=== PATIENT | male | born 1935 | race Caucasian/White ===

== ENCOUNTER → 2021-11-09 | Outpatient (CLI) | payer OTHER, BC ==
[~2021-11-09] MED LIST: AMLODIPINE PO; CLOPIDOGREL75 MG PO; HYDROCHLOTHIAZIDE PO; IOPAMIDOL 370 MG/ML 200 ML INFUS..BTL INJ ONE; LEVOTHYROXINE75 MCG PO; SODIUM CHLORIDE 0.9% 0 ML ONE
[2021-11-09 09:57] LABS: CREATININE, SERUM 2.27 mg/dL (0.72-1.25)
== END ==
LOC: CT 08:40
PROVIDERS: ATTEND Internal Medicine Interventional Cardiology
DX: R07.9 Chest pain, unspecified (principal); I48.91 Unspecified atrial fibrillation; I28.8 Other diseases of pulmonary vessels; I25.10 Atherosclerotic heart disease of native coronary artery without angina pectoris
CPT/HCPCS: 36415; 71250; 82565; 84520; J7050; Q9967

== ENCOUNTER 2022-02-20 10:08 | Inpatient (IN) | payer OTHER, BC ==
[~2022-02-20] VITALS: Ht 175.3 cm; Wt 48.1 kg
[2022-02-20] VITALS (8 sets, daily range): BP systolic 95–131; BP diastolic 42–108
[2022-02-20] MEDS: SODIUM CHLORIDE 0.9% 1000ML 1,000 ML IV SCH ×2 (01:30→14:12)
[~2022-02-20 10:08] MED LIST changes: -IOPAMIDOL 370 MG/ML 200 ML INFUS..BTL INJ ONE; -SODIUM CHLORIDE 0.9% 0 ML ONE
[2022-02-20] MEDS ORDERED: SODIUM CHLORIDE FLUSH 10 ML SYR IV PRN (10:15)
[2022-02-20] MEDS ORDERED: ACETAMINOPHEN 325 MG TAB PO ONE (10:30)
[2022-02-20 10:42] LABS: BASOPHILS # (AUTO) 0.1 (0.0-0.1); BASOPHILS % 0.8 % (0.0-1.0); EOSINOPHILS # (AUTO) 0.4 (0.0-0.4); EOSINOPHILS % 2.4 % (0.0-6.0); HEMATOCRIT 40.8 % (38.2-49.6); HEMOGLOBIN 12.3 g/dL (14.0-18.0); LYMPHOCYTES # (AUTO) 0.9 (1.0-3.2); LYMPHOCYTES % 6.1 % (18.0-39.1); MEAN CORPUSCULAR HGB CONC 30.1 g/dL (31-35); MEAN CORPUSCULAR VOLUME 89.5 fL (81-99); MONOCYTES # (AUTO) 0.7 (0.2-0.8); MONOCYTES % 4.6 % (4.4-11.3); NEUTROPHILS # (AUTO) 12.4 (2.1-6.9); NEUTROPHILS % 85.7 % (38.7-80.0); PLATELET COUNT 457 x10e3/uL (140-360); RED BLOOD COUNT 4.56 x10e6/uL (4.3-5.7); RED CELL DISTRIBUTION WIDTH 15.2 % (11.7-14.4)
[2022-02-20 11:24] LABS: ALBUMIN 3.4 g/dL (3.5-5.0); ALBUMIN/GLOBULIN RATIO 0.8 (0.8-2.0); ANION GAP 17.3 mmol/L (8-16); CALCIUM 8.7 mg/dL (8.4-10.2); CREATININE, SERUM 4.35 mg/dL (0.72-1.25)
[2022-02-20 11:29] LABS: POTASSIUM 6.3 mmol/L (3.5-5.1)
[2022-02-20] MEDS ORDERED: ALBUTEROL SULF 0.083% NEB SOLN 3 ML NEB NEB STA (11:37)
[2022-02-20] MEDS ORDERED: SODIUM BICARBONATE 8.4% INJ 50 ML SYR IV STA ×2 (11:43→11:57)
[2022-02-20] MEDS ORDERED: LACTATED RINGER'S 1,000 ML INJ ONE ×2 (11:45→12:30)
[2022-02-20] MEDS ORDERED: DEXTROSE 50% SYRINGE 50 ML IV ONE (11:45)
[2022-02-20] MEDS ORDERED: INSULIN REGULAR, HUMAN 100 UNIT/1 ML IV ONE (11:45)
[2022-02-20] MEDS ORDERED: ONDANSETRON HCL INJ 2MG/ML 2ML 2 MG/ML VIAL IV PRN (12:30)
[2022-02-20] MEDS ORDERED: CALCIUM GLUC 1 G/50 ML NACL 50 ML IV ONE (12:45)
[2022-02-20] MEDS ORDERED: SOD POLYSTYRENE SULFONATE SUSP 15 GM/60 ML BTL PO ONE (15:00)
[2022-02-20 15:53] LABS: CALCIUM 8.7 mg/dL (8.4-10.2); CREATININE, SERUM 3.79 mg/dL (0.72-1.25)
[2022-02-20] MEDS: LEVOFLOXACIN 250MG/D5W 50ML 50 ML IV SCH (16:09)
[2022-02-20 16:41] LABS: CLARITY,URINE CLOUDY (CLEAR); COLOR,URINE YELLOW (YELLOW); KETONES,URINE NEGATIVE (NEGATIVE); LEUKOCYTE ESTERASE ,URINE 2+ (NEGATIVE); NITRITE,URINE NEGATIVE (NEGATIVE); PROTEIN,URINE DIPSTICK 1+ (NEGATIVE); URINE UROBILINOGEN 0.2 mg/dL (0.2 - 1)
[2022-02-20 16:47] LABS: BACTERIA,URINE FEW /HPF; EPITHELIAL CELLS,URINE FEW /LPF; RBC,URINE 0-5 /HPF (0-5)
[2022-02-20 17:20] LABS: TOTAL PROTEIN, URINE 18.5 mg/dL (1-14)
[2022-02-20 17:37] LABS: CREATININE,URINE RANDOM 77.44 mg/dL (63-166); SODIUM,URINE 66 mmol/L
[2022-02-20 19:53] LABS: EOSINOPHIL SMEAR,URINE NONE SEEN (NONE SEEN)
[2022-02-21] VITALS (16 sets, daily range): BP systolic 113–151; BP diastolic 47–78
[2022-02-21 05:01] LABS: BASOPHILS # (AUTO) 0.1 (0.0-0.1); BASOPHILS % 0.7 % (0.0-1.0); EOSINOPHILS # (AUTO) 0.3 (0.0-0.4); EOSINOPHILS % 3.3 % (0.0-6.0); HEMATOCRIT 34.3 % (38.2-49.6); LYMPHOCYTES # (AUTO) 0.5 (1.0-3.2); LYMPHOCYTES % 5.2 % (18.0-39.1); MEAN CORPUSCULAR HEMOGLOBIN 27.2 pg (28-32); MEAN CORPUSCULAR HGB CONC 29.2 g/dL (31-35); MEAN CORPUSCULAR VOLUME 93.2 fL (81-99); MONOCYTES # (AUTO) 0.7 (0.2-0.8); MONOCYTES % 6.5 % (4.4-11.3); NEUTROPHILS # (AUTO) 8.7 (2.1-6.9); NEUTROPHILS % 83.9 % (38.7-80.0); PLATELET COUNT 284 x10e3/uL (140-360); RED BLOOD COUNT 3.68 x10e6/uL (4.3-5.7); RED CELL DISTRIBUTION WIDTH 15.4 % (11.7-14.4)
[2022-02-21 05:17] LABS: ANION GAP 14.1 mmol/L (8-16); CALCIUM 7.7 mg/dL (8.4-10.2); CREATININE, SERUM 3.18 mg/dL (0.72-1.25); POTASSIUM 4.1 mmol/L (3.5-5.1)
[2022-02-21] MEDS: METOPROLOL TARTRATE INJ 1 MG/ML VIAL IV PRN ×2 (05:54→12:51)
[2022-02-21] MEDS: SODIUM CHLORIDE 0.9% 1000ML 1,000 ML IV SCH ×3 (09:17→17:23)
[2022-02-21] MEDS ORDERED: VERAPAMIL ER120 MG PO (09:39)
[2022-02-21] MEDS ORDERED: ELIQUIS2.5 MG PO (09:40)
[2022-02-21] MEDS ORDERED: BENAZEPRIL HCL10 MG PO (09:41)
[2022-02-21] MEDS ORDERED: ASPIRIN EC81 MG PO (09:42)
[2022-02-21] MEDS: LEVOFLOXACIN 250MG/D5W 50ML 50 ML IV SCH (14:42)
[2022-02-21 15:55] LABS: ABG HCO3 13 mmol/L (22-26); ABG PCO2 29 mmHg (35-45); ABG PH 7.27 (7.35-7.45); ABG PO2 146 mmHg (80-105); ABG TCO2 14
[2022-02-21 16:10] LABS: BASOPHILS # (AUTO) 0.1 (0.0-0.1); BASOPHILS % 0.5 % (0.0-1.0); EOSINOPHILS # (AUTO) 0.5 (0.0-0.4); EOSINOPHILS % 4.5 % (0.0-6.0); HEMATOCRIT 31.7 % (38.2-49.6); HEMOGLOBIN 9.6 g/dL (14.0-18.0); LYMPHOCYTES # (AUTO) 0.5 (1.0-3.2); MEAN CORPUSCULAR HGB CONC 30.3 g/dL (31-35); MONOCYTES # (AUTO) 0.6 (0.2-0.8); MONOCYTES % 5.9 % (4.4-11.3); NEUTROPHILS # (AUTO) 8.4 (2.1-6.9); NEUTROPHILS % 83.7 % (38.7-80.0); PLATELET COUNT 330 x10e3/uL (140-360); RED BLOOD COUNT 3.56 x10e6/uL (4.3-5.7); RED CELL DISTRIBUTION WIDTH 15.4 % (11.7-14.4)
[2022-02-21 16:30] LABS: ANION GAP 9.8 mmol/L (8-16); CALCIUM 7.5 mg/dL (8.4-10.2); CREATININE, SERUM 2.61 mg/dL (0.72-1.25); POTASSIUM 3.8 mmol/L (3.5-5.1)
[2022-02-22] VITALS (13 sets, daily range): BP systolic 134–175; BP diastolic 49–116
[2022-02-22] MEDS: SODIUM CHLORIDE 0.9% 1000ML 1,000 ML IV SCH ×2 (02:55→15:08)
[2022-02-22 05:33] LABS: ANION GAP 11.7 mmol/L (8-16); CALCIUM 7.6 mg/dL (8.4-10.2); CREATININE, SERUM 2.16 mg/dL (0.72-1.25); POTASSIUM 3.7 mmol/L (3.5-5.1)
[2022-02-22] MEDS: LEVOTHYROXINE SODIUM 25 MCG TABLET PO SCH (06:36)
[2022-02-22] MEDS: METOPROLOL TARTRATE INJ 1 MG/ML VIAL IV PRN ×2 (12:00→12:45)
[2022-02-22] MEDS ORDERED: ONDANSETRON HCL INJ 2MG/ML 2ML 2 MG/ML VIAL IV PRN (13:00)
[2022-02-22] MEDS: VERAPAMIL HCL 120 MG TABSR PO SCH (15:18)
[2022-02-22] MEDS: APIXAB 2.5 MG TABLET PO SCH ×2 (15:18→22:22)
[2022-02-22] MEDS: LEVOFLOXACIN 250MG/D5W 50ML 50 ML IV SCH (15:19)
[2022-02-22] MEDS: SODIUM BICARBONATE 8.4% SYRING 50 ML in SODIUM CHLORIDE 0.45% 1,000 ML IV SCH (17:04)
[2022-02-22] MEDS: QUETIAPINE FUMARATE 25 MG TAB PO SCH (22:23)
[2022-02-23] VITALS (16 sets, daily range): BP systolic 82–176; BP diastolic 57–157
[2022-02-23] MEDS: SODIUM BICARBONATE 8.4% SYRING 50 ML in SODIUM CHLORIDE 0.45% 1,000 ML IV SCH ×2 (03:28→12:06)
[2022-02-23] MEDS: LEVOTHYROXINE SODIUM 25 MCG TABLET PO SCH (05:55)
[2022-02-23] MEDS: VERAPAMIL HCL 120 MG TABSR PO SCH (09:03)
[2022-02-23] MEDS: APIXAB 2.5 MG TABLET PO SCH ×2 (09:03→21:00)
[2022-02-23] MEDS: ACETAMINOPHEN 325 MG TAB PO PRN (10:01)
[2022-02-23 11:14] LABS: ANION GAP 13.5 mmol/L (8-16); CALCIUM 7.8 mg/dL (8.4-10.2); CREATININE, SERUM 1.74 mg/dL (0.72-1.25); POTASSIUM 3.5 mmol/L (3.5-5.1)
[2022-02-23] MEDS: LEVOFLOXACIN 250MG/D5W 50ML 50 ML IV SCH (15:38)
[2022-02-23] MEDS ORDERED: SODIUM CHLORIDE 0.9% 500ML 500 ML ONE (18:33)
[2022-02-23] MEDS: QUETIAPINE FUMARATE 25 MG TAB PO SCH (21:00)
[2022-02-23] MEDS: SODIUM BICARBONATE 8.4% 50 ML in SODIUM CHLORIDE 0.45% 1,000 ML IV SCH (21:23)
[2022-02-24] VITALS (23 sets, daily range): BP systolic 104–188; BP diastolic 48–104
[2022-02-24] MEDS: METOPROLOL TARTRATE INJ 1 MG/ML VIAL IV PRN ×2 (00:40→11:01)
[2022-02-24] MEDS: ACETAMINOPHEN 325 MG TAB PO PRN ×2 (00:41→09:15)
[2022-02-24 03:34] LABS: % IRON SATURATION 14 % (15-50); IRON 32 ug/dL (65-175); TOTAL IRON BINDING CAPACITY 235 ug/dL (261-478); TRANSFERRIN 168 mg/dL (174-364)
[2022-02-24] MEDS: LEVOTHYROXINE SODIUM 25 MCG TABLET PO SCH (06:02)
[2022-02-24] MEDS: APIXAB 2.5 MG TABLET PO SCH ×2 (08:56→20:53)
[2022-02-24] MEDS: VERAPAMIL HCL 120 MG TABSR PO SCH (08:56)
[2022-02-24] MEDS: SODIUM BICARBONATE 8.4% 50 ML in SODIUM CHLORIDE 0.45% 1,000 ML IV SCH (09:30)
[2022-02-24] MEDS: HYDROCODONE/APAP 7.5MG-325MG 1 EA TAB PO PRN ×2 (11:15→16:56)
[2022-02-24] MEDS: LEVOFLOXACIN 250MG/D5W 50ML 50 ML IV SCH (15:00)
[2022-02-24 17:16] LABS: ANION GAP 11.5 mmol/L (8-16); CALCIUM 7.4 mg/dL (8.4-10.2); CREATININE, SERUM 1.96 mg/dL (0.72-1.25); POTASSIUM 3.5 mmol/L (3.5-5.1)
[2022-02-24] MEDS: SODIUM CHLORIDE 0.9% 1000ML 1,000 ML IV SCH (20:00)
[2022-02-24] MEDS: QUETIAPINE FUMARATE 25 MG TAB PO SCH (20:53)
[2022-02-25] VITALS (18 sets, daily range): BP systolic 110–154; BP diastolic 44–71
[2022-02-25] MEDS ORDERED: CYANOCOBALAMIN INJ 1,000 MCG/ML VIAL IM ONE (02:15)
[2022-02-25 04:57] LABS: BASOPHILS # (AUTO) 0.1 (0.0-0.1); BASOPHILS % 0.5 % (0.0-1.0); EOSINOPHILS # (AUTO) 0.6 (0.0-0.4); EOSINOPHILS % 4.4 % (0.0-6.0); HEMATOCRIT 26.3 % (38.2-49.6); HEMOGLOBIN 8.3 g/dL (14.0-18.0); LYMPHOCYTES # (AUTO) 0.8 (1.0-3.2); LYMPHOCYTES % 5.5 % (18.0-39.1); MEAN CORPUSCULAR HEMOGLOBIN 27.3 pg (28-32); MEAN CORPUSCULAR HGB CONC 31.6 g/dL (31-35); MEAN CORPUSCULAR VOLUME 86.5 fL (81-99); MONOCYTES # (AUTO) 0.8 (0.2-0.8); MONOCYTES % 5.7 % (4.4-11.3); NEUTROPHILS # (AUTO) 11.5 (2.1-6.9); NEUTROPHILS % 83.1 % (38.7-80.0); PLATELET COUNT 233 x10e3/uL (140-360); RED BLOOD COUNT 3.04 x10e6/uL (4.3-5.7); RED CELL DISTRIBUTION WIDTH 15.2 % (11.7-14.4)
[2022-02-25 05:19] LABS: ALBUMIN/GLOBULIN RATIO 0.6 (0.8-2.0); ANION GAP 11.7 mmol/L (8-16); CALCIUM 7.4 mg/dL (8.4-10.2); CREATININE, SERUM 1.83 mg/dL (0.72-1.25); POTASSIUM 3.7 mmol/L (3.5-5.1)
[2022-02-25] MEDS: HYDROCODONE/APAP 7.5MG-325MG 1 EA TAB PO PRN ×2 (05:57→18:24)
[2022-02-25] MEDS: LEVOTHYROXINE SODIUM 25 MCG TABLET PO SCH (05:57)
[2022-02-25] MEDS: METOPROLOL TARTRATE 50 MG TAB PO SCH ×2 (08:54→17:04)
[2022-02-25] MEDS: APIXAB 2.5 MG TABLET PO SCH ×2 (08:54→20:44)
[2022-02-25] MEDS: CYANOCOBALAMIN INJ 1,000 MCG/ML VIAL IM SCH (08:59)
[2022-02-25] MEDS: SODIUM CHLORIDE 0.9% 1000ML 1,000 ML IV SCH (09:02)
[2022-02-25] MEDS: IRON SUCROSE 100 MG in SODIUM CHLORIDE 0.9% 100 ML 100 ML IV SCH (11:20)
[2022-02-25] MEDS: LEVOFLOXACIN 250MG/D5W 50ML 50 ML IV SCH (15:00)
[2022-02-25] MEDS: QUETIAPINE FUMARATE 25 MG TAB PO SCH (20:44)
[2022-02-26] VITALS (7 sets, daily range): BP systolic 108–136; BP diastolic 42–62
[2022-02-26] MEDS: HYDROCODONE/APAP 7.5MG-325MG 1 EA TAB PO PRN ×2 (02:58→11:19)
[2022-02-26 05:06] LABS: BASOPHILS # (AUTO) 0.1 (0.0-0.1); BASOPHILS % 0.3 % (0.0-1.0); EOSINOPHILS # (AUTO) 0.7 (0.0-0.4); EOSINOPHILS % 4.6 % (0.0-6.0); HEMATOCRIT 27.6 % (38.2-49.6); HEMOGLOBIN 8.7 g/dL (14.0-18.0); LYMPHOCYTES # (AUTO) 0.9 (1.0-3.2); LYMPHOCYTES % 5.8 % (18.0-39.1); MEAN CORPUSCULAR HEMOGLOBIN 27.4 pg (28-32); MEAN CORPUSCULAR HGB CONC 31.5 g/dL (31-35); MEAN CORPUSCULAR VOLUME 86.8 fL (81-99); MONOCYTES # (AUTO) 0.9 (0.2-0.8); MONOCYTES % 5.8 % (4.4-11.3); NEUTROPHILS # (AUTO) 12.5 (2.1-6.9); PLATELET COUNT 246 x10e3/uL (140-360); RED BLOOD COUNT 3.18 x10e6/uL (4.3-5.7); RED CELL DISTRIBUTION WIDTH 15.2 % (11.7-14.4)
[2022-02-26 05:30] LABS: ANION GAP 10.5 mmol/L (8-16); CALCIUM 7.7 mg/dL (8.4-10.2); CREATININE, SERUM 1.89 mg/dL (0.72-1.25)
[2022-02-26 05:42] LABS: POTASSIUM 4.5 mmol/L (3.5-5.1)
[2022-02-26] MEDS: LEVOTHYROXINE SODIUM 25 MCG TABLET PO SCH (06:11)
[2022-02-26] MEDS: ACETAMINOPHEN 325 MG TAB PO PRN (06:12)
[2022-02-26] MEDS: APIXAB 2.5 MG TABLET PO SCH (08:25)
[2022-02-26] MEDS: IRON SUCROSE 100 MG in SODIUM CHLORIDE 0.9% 100 ML 100 ML IV SCH (08:25)
[2022-02-26] MEDS: CYANOCOBALAMIN INJ 1,000 MCG/ML VIAL IM SCH (08:25)
[2022-02-26] MEDS: METOPROLOL TARTRATE 50 MG TAB PO SCH (08:28)
[2022-02-26] MEDS ORDERED: METOPROLOL TART50 MG PO (10:34)
[2022-02-26] MEDS ORDERED: MAGNESIUM HYDROXIDE 30 ML UDC PO ONE (10:45)
[2022-02-26] MEDS ORDERED: HYDROCODON-ACE1 EA11 PO (11:24)
[2022-02-26] MEDS ORDERED: ATENOLOL50 MG PO (11:24)
== END 2022-02-26 12:51 | disposition home or self-care (01) | DRG 872 ==
LOC: ER 10:12 → ERHOLD 12:23 → ICU 13:19
PROVIDERS: ADMIT Internal Medicine; ATTEND Internal Medicine
DX: A41.9 Sepsis, unspecified organism (principal); N17.9 Acute kidney failure, unspecified; N39.0 Urinary tract infection, site not specified; Z68.1 Body mass index [BMI] 19.9 or less, adult; E87.2 Acidosis; E87.0 Hyperosmolality and hypernatremia; N18.4 Chronic kidney disease, stage 4 (severe); N13.30 Unspecified hydronephrosis; E44.0 Moderate protein-calorie malnutrition; E87.5 Hyperkalemia; R91.8 Other nonspecific abnormal finding of lung field; R62.7 Adult failure to thrive; I48.0 Paroxysmal atrial fibrillation; Z79.01 Long term (current) use of anticoagulants; I12.9 Hypertensive chronic kidney disease with stage 1 through stage 4 chronic kidney disease, or unspecified chronic kidney disease; Z85.46 Personal history of malignant neoplasm of prostate; Z85.51 Personal history of malignant neoplasm of bladder; Z85.818 Personal history of malignant neoplasm of other sites of lip, oral cavity, and pharynx; N13.9 Obstructive and reflux uropathy, unspecified; E83.51 Hypocalcemia; Z88.0 Allergy status to penicillin; R35.1 Nocturia; N28.1 Cyst of kidney, acquired; R31.29 Other microscopic hematuria; N39.46 Mixed incontinence; D75.839 Thrombocytosis, unspecified; N35.911 Unspecified urethral stricture, male, meatal; Z91.19 Patient's noncompliance with other medical treatment and regimen
CPT/HCPCS: 36415; 36600; 71045; 74176; 74178; 76770; 80048; 80053; 81001; 81015; 82570; 82607; 82746; 82805; 83540; 83880; 84156; 84165; 84300; 84466; 84484; 85025; 85045; 85379; 87086; 93005; 94640; 94760; 94799; 97139; 99251; 99284; J1756; J1817; J1956; J2405; J3420; J7030; J7040; J7121; U0002

== ENCOUNTER 2022-06-30 11:42 | Inpatient (IN) | payer MEDICARE, BC ==
[~2022-06-30] VITALS: Ht 175.3 cm; Wt 46.7 kg
[~2022-06-30 11:42] MED LIST changes: +ASPIRIN EC81 MG PO; +ATENOLOL50 MG PO; +BENAZEPRIL HCL10 MG PO; +ELIQUIS2.5 MG PO; +HYDROCODON-ACE1 EA11 PO; +METOPROLOL TART50 MG PO; +VERAPAMIL ER120 MG PO
[2022-06-30] MEDS ORDERED: SODIUM CHLORIDE 0.9% 1000ML 1,000 ML IV ONE (12:15)
[2022-06-30 12:42] LABS: BASOPHILS # (AUTO) 0.1 (0.0-0.1); BASOPHILS % 0.4 % (0.0-1.0); EOSINOPHILS # (AUTO) 0.6 (0.0-0.4); EOSINOPHILS % 1.7 % (0.0-6.0); HEMOGLOBIN 9.5 g/dL (14.0-18.0); LYMPHOCYTES # (AUTO) 1.3 (1.0-3.2); LYMPHOCYTES % 3.8 % (18.0-39.1); MEAN CORPUSCULAR HGB CONC 29.7 g/dL (31-35); MEAN CORPUSCULAR VOLUME 90.9 fL (81-99); NEUTROPHILS # (AUTO) 31.1 (2.1-6.9); NEUTROPHILS % 89.9 % (38.7-80.0); PLATELET COUNT 421 x10e3/uL (140-360); RED BLOOD COUNT 3.52 x10e6/uL (4.3-5.7); RED CELL DISTRIBUTION WIDTH 15.5 % (11.7-14.4)
[2022-06-30 13:20] LABS: CALCIUM 9.5 mg/dL (8.4-10.2); CREATININE, SERUM 3.06 mg/dL (0.72-1.25)
[2022-06-30] MEDS ORDERED: SODIUM BICARBONATE 8.4% INJ 50 ML SYR IV STA (14:01)
[2022-06-30] MEDS ORDERED: DEXTROSE 50% SYRINGE 50 ML IV STA (14:01)
[2022-06-30 14:14] LABS: CLARITY,URINE CLOUDY (CLEAR); COLOR,URINE YELLOW (YELLOW)
[2022-06-30 14:15] LABS: KETONES,URINE NEGATIVE (NEGATIVE); LEUKOCYTE ESTERASE ,URINE SMALL (NEGATIVE); NITRITE,URINE NEGATIVE (NEGATIVE); PROTEIN,URINE DIPSTICK 1+ (NEGATIVE); URINE UROBILINOGEN 0.2 mg/dL (0.2 - 1)
[2022-06-30] MEDS ORDERED: FUROSEMIDE INJ 10 MG/ML 2 ML VIAL IV ONE (14:15)
[2022-06-30] MEDS ORDERED: CALCIUM GLUC 1 G/50 ML NACL 50 ML IV ONE (14:15)
[2022-06-30] MEDS ORDERED: INSULIN REGULAR, HUMAN 100 UNIT/1 ML IV ONE (14:15)
[2022-06-30 14:27] LABS: BACTERIA,URINE MODERATE /HPF; EPITHELIAL CELLS,URINE RARE /LPF; RBC,URINE 0-5 /HPF (0-5); WBC,URINE (MAN) 21-50 /HPF (0-5)
[2022-06-30] MEDS ORDERED: SODIUM CHLORIDE FLUSH 10 ML SYR INJ PRN (14:30)
[2022-06-30] MEDS ORDERED: ONDANSETRON HCL INJ 2MG/ML 2ML 2 MG/ML VIAL IV PRN (14:30)
[2022-06-30 14:33] LABS: EOSINOPHILS % (MANUAL) 1 % (0-7); LYMPHOCYTES % (MANUAL) 2 % (19-48); MONOCYTES % (MANUAL) 2 % (3.4-9.0); NEUTROPHILS % (MANUAL) 95 % (40-74)
[2022-06-30 14:34] LABS: PLATELET ESTIMATE SLIGHTLY INCREASED; PLATELET MORPHOLOGY COMMENT NORMAL
[2022-06-30 14:35] LABS: BURR CELLS SLIGHT
[2022-06-30] MEDS ORDERED: ENOXAPARIN SOD INJ 40 MG/0.4 ML SYR SC STA (14:41)
[2022-06-30] MEDS ORDERED: SOD POLYSTYRENE SULFONATE SUSP 15 GM/60 ML BTL PO ONE (14:45)
[2022-06-30 15:11] LABS: ABG HCO3 19 mmol/L (22-26); ABG PCO2 24 mmHg (35-45); ABG PO2 138 mmHg (80-105)
[2022-06-30 15:12] LABS: ABG TCO2 20
[2022-06-30] MEDS ORDERED: VELTASSA8.4 GM PO (17:27)
[2022-06-30] MEDS ORDERED: SODIUM CHLORIDE 0.9% 1000ML 2,000 ML ONE (17:27)
[2022-06-30 19:20] VITALS: BP 133/43
[2022-06-30 22:45] LABS: BASOPHILS # (AUTO) 0.1 (0.0-0.1); BASOPHILS % 0.3 % (0.0-1.0); EOSINOPHILS # (AUTO) 0.5 (0.0-0.4); EOSINOPHILS % 1.8 % (0.0-6.0); HEMATOCRIT 26.5 % (38.2-49.6); HEMOGLOBIN 8.1 g/dL (14.0-18.0); LYMPHOCYTES # (AUTO) 0.7 (1.0-3.2); LYMPHOCYTES % 2.6 % (18.0-39.1); MEAN CORPUSCULAR HGB CONC 30.6 g/dL (31-35); MEAN CORPUSCULAR VOLUME 88.3 fL (81-99); MONOCYTES # (AUTO) 0.9 (0.2-0.8); MONOCYTES % 3.1 % (4.4-11.3); NEUTROPHILS # (AUTO) 25.6 (2.1-6.9); NEUTROPHILS % 91.4 % (38.7-80.0); PLATELET COUNT 345 x10e3/uL (140-360); RED CELL DISTRIBUTION WIDTH 15.3 % (11.7-14.4)
[2022-06-30 23:04] LABS: ALBUMIN 2.5 g/dL (3.5-5.0); ALBUMIN/GLOBULIN RATIO 0.7 (0.8-2.0); ANION GAP 18.3 mmol/L (8-16); CALCIUM 8.6 mg/dL (8.4-10.2); CREATININE, SERUM 2.63 mg/dL (0.72-1.25)
[2022-06-30 23:08] LABS: POTASSIUM 4.3 mmol/L (3.5-5.1)
[2022-06-30 23:10] LABS: CREATINE KINASE MB 1.4 ng/mL (0-5.0)
[2022-07-01 06:50] VITALS: BP 160/58
[2022-07-01 08:52] LABS: BASOPHILS # (AUTO) 0.1 (0.0-0.1); BASOPHILS % 0.4 % (0.0-1.0); EOSINOPHILS # (AUTO) 0.7 (0.0-0.4); EOSINOPHILS % 2.6 % (0.0-6.0); HEMATOCRIT 27.2 % (38.2-49.6); HEMOGLOBIN 8.2 g/dL (14.0-18.0); LYMPHOCYTES # (AUTO) 0.8 (1.0-3.2); LYMPHOCYTES % 2.8 % (18.0-39.1); MEAN CORPUSCULAR HGB CONC 30.1 g/dL (31-35); MEAN CORPUSCULAR VOLUME 89.5 fL (81-99); MONOCYTES # (AUTO) 0.8 (0.2-0.8); MONOCYTES % 2.8 % (4.4-11.3); NEUTROPHILS # (AUTO) 26.3 (2.1-6.9); NEUTROPHILS % 90.6 % (38.7-80.0); PLATELET COUNT 354 x10e3/uL (140-360); RED BLOOD COUNT 3.04 x10e6/uL (4.3-5.7); RED CELL DISTRIBUTION WIDTH 15.5 % (11.7-14.4)
[2022-07-01 09:24] LABS: CREATINE KINASE MB 1.4 ng/mL (0-5.0)
[2022-07-01 09:40] LABS: ALBUMIN 2.5 g/dL (3.5-5.0); ALBUMIN/GLOBULIN RATIO 0.7 (0.8-2.0); ANION GAP 17.8 mmol/L (8-16); CALCIUM 8.5 mg/dL (8.4-10.2); CREATININE, SERUM 2.38 mg/dL (0.72-1.25); POTASSIUM 3.8 mmol/L (3.5-5.1)
[2022-07-01] MEDS ORDERED: SODIUM BICARBONATE 650 MG TAB PO SCH (12:45)
[2022-07-01 13:00] LABS: LYMPHOCYTES % (MANUAL) 2 % (19-48); MONOCYTES % (MANUAL) 3 % (3.4-9.0); NEUTROPHILS % (MANUAL) 95 % (40-74)
[2022-07-01 13:01] LABS: BURR CELLS SLIGHT; PLATELET ESTIMATE ADEQUATE; PLATELET MORPHOLOGY COMMENT NORMAL
[2022-07-01] MEDS: APIXAB 2.5 MG TABLET PO SCH (19:24)
[2022-07-01] MEDS: ATENOLOL 50 MG TAB PO SCH (19:24)
[2022-07-02 06:12] LABS: BASOPHILS # (AUTO) 0.1 (0.0-0.1); BASOPHILS % 0.2 % (0.0-1.0); EOSINOPHILS # (AUTO) 0.4 (0.0-0.4); EOSINOPHILS % 1.4 % (0.0-6.0); HEMATOCRIT 31.2 % (38.2-49.6); HEMOGLOBIN 9.4 g/dL (14.0-18.0); LYMPHOCYTES % 3.8 % (18.0-39.1); MEAN CORPUSCULAR HEMOGLOBIN 26.8 pg (28-32); MEAN CORPUSCULAR HGB CONC 30.1 g/dL (31-35); MEAN CORPUSCULAR VOLUME 88.9 fL (81-99); MONOCYTES # (AUTO) 0.9 (0.2-0.8); MONOCYTES % 3.5 % (4.4-11.3); NEUTROPHILS # (AUTO) 23.8 (2.1-6.9); NEUTROPHILS % 90.5 % (38.7-80.0); RED BLOOD COUNT 3.51 x10e6/uL (4.3-5.7); RED CELL DISTRIBUTION WIDTH 15.7 % (11.7-14.4)
[2022-07-02 06:15] LABS: PLATELET COUNT 228 x10e3/uL (140-360)
[2022-07-02 06:30] LABS: ANION GAP 15.8 mmol/L (8-16); CALCIUM 7.9 mg/dL (8.4-10.2); CREATININE, SERUM 2.02 mg/dL (0.72-1.25); POTASSIUM 3.8 mmol/L (3.5-5.1)
[2022-07-02 09:34] LABS: LYMPHOCYTES % (MANUAL) 2 % (19-48); MONOCYTES % (MANUAL) 3 % (3.4-9.0); NEUTROPHILS % (MANUAL) 95 % (40-74)
[2022-07-02 09:35] LABS: BURR CELLS SLIGHT; PLATELET ESTIMATE ADEQUATE; PLATELET MORPHOLOGY COMMENT NORMAL
[2022-07-02] MEDS: SODIUM BICARBONATE 650 MG TAB PO SCH ×2 (09:55→17:47)
[2022-07-02] MEDS: APIXAB 2.5 MG TABLET PO SCH ×2 (09:55→17:47)
[2022-07-02] MEDS: ATENOLOL 50 MG TAB PO SCH ×2 (09:55→17:00)
[2022-07-02] MEDS ORDERED: SODIUM BICARBONATE 8.4% SYRING 150 ML in DEXTROSE 5% 1,000 ML IV ONE (10:45)
[2022-07-02 20:45] VITALS: BP 137/63
[2022-07-02 21:00] VITALS: BP 179/57
[2022-07-02 21:15] VITALS: BP 136/57
[2022-07-02 21:30] VITALS: BP 133/57
[2022-07-02 21:45] VITALS: BP 134/56
[2022-07-02 22:00] VITALS: BP 129/55
[2022-07-03] VITALS (22 sets, daily range): BP systolic 98–142; BP diastolic 45–83
[2022-07-03] MEDS ORDERED: SODIUM BICARBONATE 8.4% SYRING 150 ML ONE (03:51)
[2022-07-03] MEDS ORDERED: DEXTROSE 5% 1,000 ML IV ONE (03:52)
[2022-07-03 05:36] LABS: BASOPHILS # (AUTO) 0.1 (0.0-0.1); BASOPHILS % 0.4 % (0.0-1.0); EOSINOPHILS # (AUTO) 0.9 (0.0-0.4); HEMATOCRIT 23.8 % (38.2-49.6); LYMPHOCYTES % 4.5 % (18.0-39.1); MEAN CORPUSCULAR HEMOGLOBIN 26.6 pg (28-32); MEAN CORPUSCULAR HGB CONC 30.7 g/dL (31-35); MEAN CORPUSCULAR VOLUME 86.9 fL (81-99); MONOCYTES # (AUTO) 0.8 (0.2-0.8); MONOCYTES % 3.9 % (4.4-11.3); NEUTROPHILS # (AUTO) 18.4 (2.1-6.9); NEUTROPHILS % 86.4 % (38.7-80.0); PLATELET COUNT 314 x10e3/uL (140-360); RED BLOOD COUNT 2.74 x10e6/uL (4.3-5.7); RED CELL DISTRIBUTION WIDTH 15.5 % (11.7-14.4)
[2022-07-03 05:45] LABS: HEMOGLOBIN 7.3 g/dL (14.0-18.0)
[2022-07-03 05:55] LABS: ANION GAP 16.2 mmol/L (8-16); CALCIUM 7.9 mg/dL (8.4-10.2); CREATININE, SERUM 1.82 mg/dL (0.72-1.25); MAGNESIUM 2.1 MG/DL (1.3-2.1); POTASSIUM 3.2 mmol/L (3.5-5.1)
[2022-07-03 07:26] LABS: EOSINOPHILS % (MANUAL) 7 % (0-7); LYMPHOCYTES % (MANUAL) 3 % (19-48); MONOCYTES % (MANUAL) 3 % (3.4-9.0); NEUTROPHILS % (MANUAL) 87 % (40-74); PLATELET ESTIMATE ADEQUATE; PLATELET MORPHOLOGY COMMENT NORMAL; RBC MORPHOLOGY COMMENT NORMAL
[2022-07-03] MEDS: APIXAB 2.5 MG TABLET PO SCH ×2 (08:06→16:53)
[2022-07-03] MEDS: ATENOLOL 50 MG TAB PO SCH ×3 (08:06→16:54)
[2022-07-03] MEDS: SODIUM BICARBONATE 650 MG TAB PO SCH ×2 (08:07→16:54)
[2022-07-03] MEDS ORDERED: POTASSIUM CHLORIDE 10MEQ EA PO ONE (13:30)
[2022-07-03] MEDS ORDERED: ACETAMINOPHEN 325 MG TAB ONE (14:09)
[2022-07-03] MEDS: ACETAMINOPHEN 325 MG TAB PO PRN (14:11)
[2022-07-04] VITALS (25 sets, daily range): BP systolic 101–152; BP diastolic 42–87
[2022-07-04] MEDS: ACETAMINOPHEN 325 MG TAB PO PRN ×2 (01:46→17:25)
[2022-07-04 06:33] LABS: BASOPHILS # (AUTO) 0.1 (0.0-0.1); BASOPHILS % 0.4 % (0.0-1.0); EOSINOPHILS # (AUTO) 0.8 (0.0-0.4); EOSINOPHILS % 3.4 % (0.0-6.0); HEMATOCRIT 23.8 % (38.2-49.6); HEMOGLOBIN 7.2 g/dL (14.0-18.0); LYMPHOCYTES # (AUTO) 1.1 (1.0-3.2); LYMPHOCYTES % 4.6 % (18.0-39.1); MEAN CORPUSCULAR HGB CONC 30.3 g/dL (31-35); MEAN CORPUSCULAR VOLUME 89.1 fL (81-99); MONOCYTES # (AUTO) 1.1 (0.2-0.8); MONOCYTES % 4.6 % (4.4-11.3); NEUTROPHILS # (AUTO) 20.1 (2.1-6.9); NEUTROPHILS % 86.2 % (38.7-80.0); PLATELET COUNT 297 x10e3/uL (140-360); RED BLOOD COUNT 2.67 x10e6/uL (4.3-5.7); RED CELL DISTRIBUTION WIDTH 15.3 % (11.7-14.4)
[2022-07-04 07:01] LABS: ALBUMIN 2.1 g/dL (3.5-5.0); ALBUMIN/GLOBULIN RATIO 0.6 (0.8-2.0); ANION GAP 14.5 mmol/L (8-16); CALCIUM 7.7 mg/dL (8.4-10.2); CREATININE, SERUM 1.81 mg/dL (0.72-1.25); POTASSIUM 3.5 mmol/L (3.5-5.1)
[2022-07-04] MEDS: APIXAB 2.5 MG TABLET PO SCH ×2 (08:18→16:06)
[2022-07-04] MEDS: ATENOLOL 50 MG TAB PO SCH (08:18)
[2022-07-04] MEDS: SODIUM BICARBONATE 650 MG TAB PO SCH ×2 (08:18→16:06)
[2022-07-04 08:41] LABS: EOSINOPHILS % (MANUAL) 1 % (0-7); LYMPHOCYTES % (MANUAL) 9 % (19-48); MONOCYTES % (MANUAL) 2 % (3.4-9.0); NEUTROPHILS % (MANUAL) 88 % (40-74); PLATELET ESTIMATE ADEQUATE; PLATELET MORPHOLOGY COMMENT NORMAL; RBC MORPHOLOGY COMMENT NORMAL
[2022-07-04] MEDS ORDERED: HYDRALAZINE HCL 20 MG/ML VIAL IV PRN (13:00)
[2022-07-04] MEDS ORDERED: GUAIFENESIN/DEXTROMETHORPHAN LIQD 5 ML UDC PO PRN (13:00)
[2022-07-04] MEDS ORDERED: HYDROCODONE/APAP 5MG-325MG TAB PO PRN (18:00)
[2022-07-05] VITALS (15 sets, daily range): BP systolic 98–152; BP diastolic 42–70
[2022-07-05] MEDS: HYDROCODONE/APAP 5MG-325MG TAB PO PRN ×2 (03:39→17:48)
[2022-07-05] MEDS: SODIUM BICARBONATE 650 MG TAB PO SCH ×2 (08:59→16:32)
[2022-07-05] MEDS: MULTIVITAMINS/MINERALS TAB PO SCH (08:59)
[2022-07-05] MEDS: APIXAB 2.5 MG TABLET PO SCH ×2 (08:59→16:32)
[2022-07-05 09:41] LABS: BASOPHILS # (AUTO) 0.1 (0.0-0.1); BASOPHILS % 0.4 % (0.0-1.0); EOSINOPHILS # (AUTO) 0.8 (0.0-0.4); EOSINOPHILS % 2.9 % (0.0-6.0); HEMATOCRIT 23.6 % (38.2-49.6); HEMOGLOBIN 7.3 g/dL (14.0-18.0); LYMPHOCYTES % 3.5 % (18.0-39.1); MEAN CORPUSCULAR HEMOGLOBIN 27.5 pg (28-32); MEAN CORPUSCULAR HGB CONC 30.9 g/dL (31-35); MEAN CORPUSCULAR VOLUME 89.1 fL (81-99); MONOCYTES # (AUTO) 1.1 (0.2-0.8); MONOCYTES % 3.9 % (4.4-11.3); NEUTROPHILS # (AUTO) 23.7 (2.1-6.9); NEUTROPHILS % 88.1 % (38.7-80.0); PLATELET COUNT 275 x10e3/uL (140-360); RED BLOOD COUNT 2.65 x10e6/uL (4.3-5.7); RED CELL DISTRIBUTION WIDTH 15.3 % (11.7-14.4)
[2022-07-05 09:46] LABS: ANION GAP 13.5 mmol/L (8-16); CALCIUM 7.7 mg/dL (8.4-10.2); CREATININE, SERUM 1.85 mg/dL (0.72-1.25); MAGNESIUM 1.6 MG/DL (1.3-2.1); POTASSIUM 3.5 mmol/L (3.5-5.1)
[2022-07-05 11:29] LABS: BAND NEUTROPHILS % (MANUAL) 2 %; EOSINOPHILS % (MANUAL) 1 % (0-7); LYMPHOCYTES % (MANUAL) 1 % (19-48); MONOCYTES % (MANUAL) 2 % (3.4-9.0); NEUTROPHILS % (MANUAL) 94 % (40-74)
[2022-07-05 11:33] LABS: PLATELET ESTIMATE ADEQUATE; PLATELET MORPHOLOGY COMMENT NORMAL; RBC MORPHOLOGY COMMENT NORMAL
[2022-07-05] MEDS ORDERED: SODIUM CHLORIDE 0.9% 250ML 250 ML ONE (16:06)
[2022-07-05] MEDS ORDERED: MAGNESIUM SULFATE 2GM/50ML 50 ML IV ONE (17:00)
[2022-07-06] VITALS (8 sets, daily range): BP systolic 114–143; BP diastolic 41–61
[2022-07-06] MEDS: HYDROCODONE/APAP 5MG-325MG TAB PO PRN ×3 (02:47→20:50)
[2022-07-06 06:38] LABS: BASOPHILS # (AUTO) 0.1 (0.0-0.1); BASOPHILS % 0.3 % (0.0-1.0); EOSINOPHILS # (AUTO) 0.4 (0.0-0.4); EOSINOPHILS % 1.4 % (0.0-6.0); HEMATOCRIT 23.1 % (38.2-49.6); LYMPHOCYTES % 3.5 % (18.0-39.1); MEAN CORPUSCULAR HEMOGLOBIN 26.9 pg (28-32); MEAN CORPUSCULAR HGB CONC 30.3 g/dL (31-35); MEAN CORPUSCULAR VOLUME 88.8 fL (81-99); MONOCYTES # (AUTO) 1.1 (0.2-0.8); MONOCYTES % 4.1 % (4.4-11.3); NEUTROPHILS # (AUTO) 24.6 (2.1-6.9); NEUTROPHILS % 89.9 % (38.7-80.0); PLATELET COUNT 292 x10e3/uL (140-360); RED CELL DISTRIBUTION WIDTH 14.9 % (11.7-14.4)
[2022-07-06 06:55] LABS: ALBUMIN 1.9 g/dL (3.5-5.0); ALBUMIN/GLOBULIN RATIO 0.5 (0.8-2.0); ANION GAP 14.7 mmol/L (8-16); CALCIUM 8.1 mg/dL (8.4-10.2); CREATININE, SERUM 1.95 mg/dL (0.72-1.25); POTASSIUM 3.7 mmol/L (3.5-5.1)
[2022-07-06] MEDS: MULTIVITAMINS/MINERALS TAB PO SCH (09:27)
[2022-07-06] MEDS: APIXAB 2.5 MG TABLET PO SCH ×2 (09:27→17:47)
[2022-07-06] MEDS: SODIUM BICARBONATE 650 MG TAB PO SCH ×2 (09:28→17:47)
[2022-07-07] VITALS (8 sets, daily range): BP systolic 101–132; BP diastolic 53–67
[2022-07-07] MEDS: HYDROCODONE/APAP 5MG-325MG TAB PO PRN ×3 (04:26→20:58)
[2022-07-07 05:49] LABS: BASOPHILS # (AUTO) 0.1 (0.0-0.1); BASOPHILS % 0.4 % (0.0-1.0); EOSINOPHILS # (AUTO) 0.7 (0.0-0.4); HEMATOCRIT 21.5 % (38.2-49.6); LYMPHOCYTES # (AUTO) 0.9 (1.0-3.2); LYMPHOCYTES % 4.2 % (18.0-39.1); MEAN CORPUSCULAR HEMOGLOBIN 26.6 pg (28-32); MEAN CORPUSCULAR HGB CONC 30.2 g/dL (31-35); MEAN CORPUSCULAR VOLUME 88.1 fL (81-99); MONOCYTES # (AUTO) 0.9 (0.2-0.8); MONOCYTES % 4.2 % (4.4-11.3); NEUTROPHILS # (AUTO) 19.2 (2.1-6.9); NEUTROPHILS % 87.5 % (38.7-80.0); PLATELET COUNT 276 x10e3/uL (140-360); RED BLOOD COUNT 2.44 x10e6/uL (4.3-5.7); RED CELL DISTRIBUTION WIDTH 14.6 % (11.7-14.4)
[2022-07-07 06:00] LABS: HEMOGLOBIN 6.5 g/dL (14.0-18.0)
[2022-07-07 06:03] LABS: ANION GAP 12.7 mmol/L (8-16); CALCIUM 7.8 mg/dL (8.4-10.2); CREATININE, SERUM 1.79 mg/dL (0.72-1.25); POTASSIUM 3.7 mmol/L (3.5-5.1)
[2022-07-07] MEDS ORDERED: SODIUM CHLORIDE 0.9% 250ML 250 ML IV ONE (06:45)
[2022-07-07 08:03] LABS: EOSINOPHILS % (MANUAL) 2 % (0-7); LYMPHOCYTES % (MANUAL) 4 % (19-48); MONOCYTES % (MANUAL) 2 % (3.4-9.0); NEUTROPHILS % (MANUAL) 92 % (40-74)
[2022-07-07 08:04] LABS: PLATELET ESTIMATE ADEQUATE; PLATELET MORPHOLOGY COMMENT NORMAL; RBC MORPHOLOGY COMMENT NORMAL
[2022-07-07] MEDS: METOPROLOL TARTRATE 25 MG TAB PO SCH ×3 (08:36→16:56)
[2022-07-07] MEDS: SODIUM BICARBONATE 650 MG TAB PO SCH ×2 (08:36→16:55)
[2022-07-07] MEDS: MULTIVITAMINS/MINERALS TAB PO SCH (08:36)
[2022-07-07] MEDS ORDERED: EPOETIN ALFA-EPBX 10,000 UNIT/ML VIAL SC ONE (11:30)
[2022-07-07 11:48] LABS: FERRITIN 498.9 ng/mL (21.81-274.66)
[2022-07-07] MEDS ORDERED: SODIUM CHLORIDE 0.9% 250ML 250 ML ONE ×2 (11:59→23:35)
[2022-07-07] MEDS: METHYLPREDNISOLONE SOD SUCC 40 MG/ML VIAL 1ML IV SCH ×2 (13:54→20:57)
[2022-07-07] MEDS: AMIODARONE HCL 200 MG TAB PO SCH (16:55)
[2022-07-07] MEDS: SODIUM FERRIC GLUCONATE COMPLX 125 MG in SODIUM CHLORIDE 0.9% 100 ML IV SCH (18:34)
[2022-07-07] MEDS: MELATONIN 3 MG TAB PO PRN (20:58)
[2022-07-08] VITALS (9 sets, daily range): BP systolic 103–141; BP diastolic 49–96
[2022-07-08] MEDS: METOPROLOL TARTRATE 25 MG TAB PO SCH ×5 (01:12→23:44)
[2022-07-08] MEDS: HYDROCODONE/APAP 5MG-325MG TAB PO PRN (05:45)
[2022-07-08] MEDS: METHYLPREDNISOLONE SOD SUCC 40 MG/ML VIAL 1ML IV SCH ×2 (09:11→20:18)
[2022-07-08] MEDS: MULTIVITAMINS/MINERALS TAB PO SCH (09:11)
[2022-07-08] MEDS: AMIODARONE HCL 200 MG TAB PO SCH ×2 (09:12→16:57)
[2022-07-08] MEDS: SODIUM BICARBONATE 650 MG TAB PO SCH ×2 (09:12→16:58)
[2022-07-08 10:19] LABS: BASOPHILS # (AUTO) 0.1 (0.0-0.1); BASOPHILS % 0.2 % (0.0-1.0); HEMATOCRIT 31.7 % (38.2-49.6); LYMPHOCYTES # (AUTO) 0.4 (1.0-3.2); MEAN CORPUSCULAR HEMOGLOBIN 27.8 pg (28-32); MEAN CORPUSCULAR HGB CONC 31.5 g/dL (31-35); MEAN CORPUSCULAR VOLUME 88.1 fL (81-99); MONOCYTES # (AUTO) 0.3 (0.2-0.8); MONOCYTES % 0.8 % (4.4-11.3); NEUTROPHILS # (AUTO) 36.1 (2.1-6.9); NEUTROPHILS % 96.2 % (38.7-80.0); PLATELET COUNT 236 x10e3/uL (140-360); RED CELL DISTRIBUTION WIDTH 14.6 % (11.7-14.4)
[2022-07-08 12:44] LABS: LYMPHOCYTES % (MANUAL) 1 % (19-48); MONOCYTES % (MANUAL) 1 % (3.4-9.0); NEUTROPHILS % (MANUAL) 98 % (40-74)
[2022-07-08 12:45] LABS: PLATELET ESTIMATE ADEQUATE; PLATELET MORPHOLOGY COMMENT NORMAL; RBC MORPHOLOGY COMMENT NORMAL
[2022-07-08] MEDS: SODIUM FERRIC GLUCONATE COMPLX 125 MG in SODIUM CHLORIDE 0.9% 100 ML IV SCH (13:43)
[2022-07-09] VITALS (8 sets, daily range): BP systolic 113–156; BP diastolic 49–113
[2022-07-09] MEDS: METOPROLOL TARTRATE 25 MG TAB PO SCH ×3 (05:28→22:22)
[2022-07-09 07:01] LABS: HEMATOCRIT 33.5 % (38.2-49.6); LYMPHOCYTES # (AUTO) 0.3 (1.0-3.2); LYMPHOCYTES % 0.7 % (18.0-39.1); MEAN CORPUSCULAR HGB CONC 32.8 g/dL (31-35); MEAN CORPUSCULAR VOLUME 85.2 fL (81-99); MONOCYTES # (AUTO) 0.4 (0.2-0.8); MONOCYTES % 0.9 % (4.4-11.3); NEUTROPHILS # (AUTO) 42.6 (2.1-6.9); NEUTROPHILS % 95.2 % (38.7-80.0); PLATELET COUNT 240 x10e3/uL (140-360); RED BLOOD COUNT 3.93 x10e6/uL (4.3-5.7); RED CELL DISTRIBUTION WIDTH 15.1 % (11.7-14.4)
[2022-07-09] MEDS: METHYLPREDNISOLONE SOD SUCC 40 MG/ML VIAL 1ML IV SCH ×2 (08:15→20:33)
[2022-07-09] MEDS: HYDROCODONE/APAP 5MG-325MG TAB PO PRN (08:16)
[2022-07-09] MEDS: MULTIVITAMINS/MINERALS TAB PO SCH (08:16)
[2022-07-09] MEDS: AMIODARONE HCL 200 MG TAB PO SCH (08:16)
[2022-07-09] MEDS: SODIUM BICARBONATE 650 MG TAB PO SCH ×2 (08:16→16:14)
[2022-07-09 11:09] LABS: BAND NEUTROPHILS % (MANUAL) 2 %; LYMPHOCYTES % (MANUAL) 1 % (19-48); NEUTROPHILS % (MANUAL) 97 % (40-74); PLATELET ESTIMATE ADEQUATE; PLATELET MORPHOLOGY COMMENT NORMAL
[2022-07-09] MEDS: SODIUM FERRIC GLUCONATE COMPLX 125 MG in SODIUM CHLORIDE 0.9% 100 ML IV SCH (13:22)
[2022-07-09] MEDS ORDERED: ONDANSETRON HCL 4 MG ORAL DISINTEGRATING TAB PO PRN (15:30)
[2022-07-10] VITALS (8 sets, daily range): BP systolic 136–160; BP diastolic 54–89
[2022-07-10] MEDS: METOPROLOL TARTRATE 25 MG TAB PO SCH ×3 (05:34→21:56)
[2022-07-10 06:20] LABS: BASOPHILS # (AUTO) 0.1 (0.0-0.1); BASOPHILS % 0.2 % (0.0-1.0); HEMATOCRIT 32.6 % (38.2-49.6); HEMOGLOBIN 10.4 g/dL (14.0-18.0); LYMPHOCYTES # (AUTO) 0.3 (1.0-3.2); LYMPHOCYTES % 0.7 % (18.0-39.1); MEAN CORPUSCULAR HGB CONC 31.9 g/dL (31-35); MEAN CORPUSCULAR VOLUME 87.9 fL (81-99); MONOCYTES # (AUTO) 0.5 (0.2-0.8); MONOCYTES % 0.9 % (4.4-11.3); NEUTROPHILS # (AUTO) 48.3 (2.1-6.9); NEUTROPHILS % 95.7 % (38.7-80.0); PLATELET COUNT 246 x10e3/uL (140-360); RED BLOOD COUNT 3.71 x10e6/uL (4.3-5.7); RED CELL DISTRIBUTION WIDTH 15.1 % (11.7-14.4)
[2022-07-10 09:18] LABS: BAND NEUTROPHILS % (MANUAL) 2 %; LYMPHOCYTES % (MANUAL) 2 % (19-48); MONOCYTES % (MANUAL) 2 % (3.4-9.0); NEUTROPHILS % (MANUAL) 94 % (40-74); PLATELET ESTIMATE ADEQUATE; PLATELET MORPHOLOGY COMMENT NORMAL; RBC MORPHOLOGY COMMENT NORMAL
[2022-07-10] MEDS: SODIUM BICARBONATE 650 MG TAB PO SCH ×2 (09:30→17:08)
[2022-07-10] MEDS: MULTIVITAMINS/MINERALS TAB PO SCH (09:30)
[2022-07-10] MEDS: METHYLPREDNISOLONE SOD SUCC 40 MG/ML VIAL 1ML IV SCH ×2 (09:30→21:53)
[2022-07-10 14:13] LABS: INR 1.16; PROTHROMBIN TIME 15.8 seconds (11.9-14.5)
[2022-07-10] MEDS: SODIUM FERRIC GLUCONATE COMPLX 125 MG in SODIUM CHLORIDE 0.9% 100 ML IV SCH (14:45)
[2022-07-11] VITALS (8 sets, daily range): BP systolic 141–169; BP diastolic 52–77
[2022-07-11] MEDS: HYDROCODONE/APAP 5MG-325MG TAB PO PRN ×2 (03:30→14:51)
[2022-07-11] MEDS: METOPROLOL TARTRATE 25 MG TAB PO SCH ×3 (06:00→21:28)
[2022-07-11 06:38] LABS: ANION GAP 17.9 mmol/L (8-16); CALCIUM 7.7 mg/dL (8.4-10.2); CREATININE, SERUM 1.91 mg/dL (0.72-1.25); POTASSIUM 3.9 mmol/L (3.5-5.1)
[2022-07-11] MEDS: SODIUM BICARBONATE 650 MG TAB PO SCH ×2 (07:56→16:30)
[2022-07-11] MEDS: METHYLPREDNISOLONE SOD SUCC 40 MG/ML VIAL 1ML IV SCH (07:56)
[2022-07-11] MEDS: MULTIVITAMINS/MINERALS TAB PO SCH (07:56)
[2022-07-11 09:32] LABS: BASOPHILS % 0.1 % (0.0-1.0); EOSINOPHILS % 0.1 % (0.0-6.0); HEMATOCRIT 34.2 % (38.2-49.6); HEMOGLOBIN 10.5 g/dL (14.0-18.0); LYMPHOCYTES # (AUTO) 0.3 (1.0-3.2); LYMPHOCYTES % 0.5 % (18.0-39.1); MEAN CORPUSCULAR HEMOGLOBIN 28.3 pg (28-32); MEAN CORPUSCULAR HGB CONC 30.7 g/dL (31-35); MEAN CORPUSCULAR VOLUME 92.2 fL (81-99); MONOCYTES # (AUTO) 0.5 (0.2-0.8); MONOCYTES % 0.9 % (4.4-11.3); NEUTROPHILS # (AUTO) 54.8 (2.1-6.9); PLATELET COUNT 255 x10e3/uL (140-360); RED BLOOD COUNT 3.71 x10e6/uL (4.3-5.7); RED CELL DISTRIBUTION WIDTH 15.4 % (11.7-14.4)
[2022-07-11] MEDS ORDERED: LIDOCAINE HCL 1% LOCAL INJ 20 ML VIAL ONE (10:15)
[2022-07-11 10:56] LABS: BAND NEUTROPHILS % (MANUAL) 3 %; LYMPHOCYTES % (MANUAL) 1 % (19-48); MONOCYTES % (MANUAL) 1 % (3.4-9.0); NEUTROPHILS % (MANUAL) 95 % (40-74)
[2022-07-11 10:57] LABS: PLATELET ESTIMATE ADEQUATE; PLATELET MORPHOLOGY COMMENT NORMAL; RBC MORPHOLOGY COMMENT NORMAL
[2022-07-11] MEDS: SODIUM FERRIC GLUCONATE COMPLX 125 MG in SODIUM CHLORIDE 0.9% 100 ML IV SCH (14:54)
[2022-07-12] VITALS (13 sets, daily range): BP systolic 110–173; BP diastolic 54–74
[2022-07-12 06:42] LABS: HEMOGLOBIN 11.8 g/dL (14.0-18.0); LYMPHOCYTES # (AUTO) 0.6 (1.0-3.2); LYMPHOCYTES % 0.9 % (18.0-39.1); MEAN CORPUSCULAR HEMOGLOBIN 28.2 pg (28-32); MEAN CORPUSCULAR HGB CONC 31.9 g/dL (31-35); MEAN CORPUSCULAR VOLUME 88.3 fL (81-99); MONOCYTES # (AUTO) 1.1 (0.2-0.8); MONOCYTES % 1.8 % (4.4-11.3); NEUTROPHILS # (AUTO) 58.5 (2.1-6.9); NEUTROPHILS % 94.6 % (38.7-80.0); PLATELET COUNT 275 x10e3/uL (140-360); RED BLOOD COUNT 4.19 x10e6/uL (4.3-5.7); RED CELL DISTRIBUTION WIDTH 16.5 % (11.7-14.4)
[2022-07-12 07:08] LABS: ALBUMIN 1.9 g/dL (3.5-5.0); ALBUMIN/GLOBULIN RATIO 0.5 (0.8-2.0); CALCIUM 8.1 mg/dL (8.4-10.2); CREATININE, SERUM 1.88 mg/dL (0.72-1.25)
[2022-07-12] MEDS: MULTIVITAMINS/MINERALS TAB PO SCH (09:00)
[2022-07-12] MEDS: SODIUM BICARBONATE 650 MG TAB PO SCH ×2 (09:00→18:11)
[2022-07-12] MEDS: METOPROLOL TARTRATE 25 MG TAB PO SCH ×2 (09:00→21:18)
[2022-07-12 09:09] LABS: ANISOCYTOSIS SLIGHT; HYPOCHROMASIA SLIGHT; LYMPHOCYTES % (MANUAL) 1 % (19-48); MONOCYTES % (MANUAL) 1 % (3.4-9.0); NEUTROPHILS % (MANUAL) 98 % (40-74); PLATELET ESTIMATE ADEQUATE; PLATELET MORPHOLOGY COMMENT NORMAL; RBC MORPHOLOGY COMMENT NORMAL
[2022-07-12] MEDS: METHYLPREDNISOLONE SOD SUCC 40 MG/ML VIAL 1ML IV SCH (09:46)
[2022-07-12] MEDS ORDERED: FENTANYL CITRATE/PF 100MCG/2 ML INJ ONE (11:56)
[2022-07-12] MEDS ORDERED: SODIUM CHLORIDE 0.9% 250ML 250 ML ONE (11:56)
[2022-07-12] MEDS ORDERED: MIDAZOLAM HCL 2 MG/2 ML VIAL ONE (11:56)
[2022-07-12] MEDS ORDERED: HYDRALAZINE HCL 20 MG/ML VIAL ONE (12:03)
[2022-07-12] MEDS ORDERED: LABETALOL HCL 20 ML ONE (12:52)
[2022-07-12] MEDS: SODIUM FERRIC GLUCONATE COMPLX 125 MG in SODIUM CHLORIDE 0.9% 100 ML IV SCH (14:47)
[2022-07-12] MEDS: CEFTRIAXONE 2 GM in SODIUM CHLORIDE 0.9% 100 ML IV SCH (18:11)
[2022-07-13] VITALS (8 sets, daily range): BP systolic 148–178; BP diastolic 60–75
[2022-07-13] MEDS: MULTIVITAMINS/MINERALS TAB PO SCH (10:16)
[2022-07-13] MEDS: METOPROLOL TARTRATE 25 MG TAB PO SCH ×2 (10:17→22:04)
[2022-07-13] MEDS: SODIUM BICARBONATE 650 MG TAB PO SCH ×2 (10:17→18:06)
[2022-07-13] MEDS: METHYLPREDNISOLONE SOD SUCC 40 MG/ML VIAL 1ML IV SCH (10:27)
[2022-07-13] MEDS ORDERED: AMLODIPINE BESYLATE 5 MG TAB PO SCH (12:30)
[2022-07-13] MEDS: AMLODIPINE BESYLATE 5 MG TAB PO SCH (13:48)
[2022-07-13] MEDS: CEFTRIAXONE 2 GM in SODIUM CHLORIDE 0.9% 100 ML IV SCH (17:00)
[2022-07-13] MEDS: SODIUM FERRIC GLUCONATE COMPLX 125 MG in SODIUM CHLORIDE 0.9% 100 ML IV SCH (18:06)
[2022-07-14] VITALS (8 sets, daily range): BP systolic 116–163; BP diastolic 65–88
[2022-07-14] MEDS: ACETAMINOPHEN 325 MG TAB PO PRN ×3 (04:59→21:44)
[2022-07-14 05:09] LABS: BASOPHILS # (AUTO) 0.1 (0.0-0.1); BASOPHILS % 0.2 % (0.0-1.0); EOSINOPHILS % 0.1 % (0.0-6.0); HEMATOCRIT 40.8 % (38.2-49.6); HEMOGLOBIN 12.5 g/dL (14.0-18.0); LYMPHOCYTES # (AUTO) 0.4 (1.0-3.2); MEAN CORPUSCULAR HEMOGLOBIN 27.8 pg (28-32); MEAN CORPUSCULAR HGB CONC 30.6 g/dL (31-35); MEAN CORPUSCULAR VOLUME 90.7 fL (81-99); MONOCYTES # (AUTO) 0.7 (0.2-0.8); MONOCYTES % 1.6 % (4.4-11.3); NEUTROPHILS % 94.8 % (38.7-80.0); PLATELET COUNT 228 x10e3/uL (140-360); RED CELL DISTRIBUTION WIDTH 17.7 % (11.7-14.4)
[2022-07-14] MEDS ORDERED: METOPROLOL TARTRATE INJ 1 MG/ML VIAL IV PRN (05:30)
[2022-07-14 05:40] LABS: CALCIUM 8.1 mg/dL (8.4-10.2); CREATININE, SERUM 1.65 mg/dL (0.72-1.25)
[2022-07-14 08:34] LABS: NEUTROPHILS % (MANUAL) 100 % (40-74); PLATELET ESTIMATE ADEQUATE; PLATELET MORPHOLOGY COMMENT NORMAL; RBC MORPHOLOGY COMMENT NORMAL
[2022-07-14] MEDS: MULTIVITAMINS/MINERALS TAB PO SCH (08:51)
[2022-07-14] MEDS: AMLODIPINE BESYLATE 5 MG TAB PO SCH (08:52)
[2022-07-14] MEDS: METOPROLOL TARTRATE 25 MG TAB PO SCH ×2 (08:52→21:45)
[2022-07-14] MEDS: PREDNISONE 20 MG TAB PO SCH (08:53)
[2022-07-14] MEDS: SODIUM BICARBONATE 650 MG TAB PO SCH ×2 (08:53→17:18)
[2022-07-14] MEDS: SODIUM FERRIC GLUCONATE COMPLX 125 MG in SODIUM CHLORIDE 0.9% 100 ML IV SCH (13:36)
[2022-07-14] MEDS ORDERED: HEPARIN SOD (PORCINE) 5,000 UNIT/ML VIAL IV ONE (13:45)
[2022-07-14 14:42] LABS: PROTHROMBIN TIME 14.1 seconds (11.9-14.5)
[2022-07-14 14:46] LABS: CREATINE KINASE < 7 IU/L (30-200)
[2022-07-14] MEDS: HEPARIN 25,000 UNIT 700 UNIT in DEXTROSE 5% 250ML 250 ML IV SCH (15:54)
[2022-07-14] MEDS: AMIODARONE HCL 200 MG TAB PO SCH (17:18)
[2022-07-14] MEDS: CEFTRIAXONE 2 GM in SODIUM CHLORIDE 0.9% 100 ML IV SCH (17:19)
[2022-07-14 18:41] LABS: CREATINE KINASE MB 0.7 ng/mL (0-5.0)
[2022-07-14] MEDS: MELATONIN 3 MG TAB PO PRN (21:45)
[2022-07-15] VITALS (8 sets, daily range): BP systolic 125–154; BP diastolic 56–72
[2022-07-15] MEDS: AMIODARONE HCL 200 MG TAB PO SCH ×2 (08:46→15:48)
[2022-07-15] MEDS: MULTIVITAMINS/MINERALS TAB PO SCH (08:46)
[2022-07-15] MEDS: AMLODIPINE BESYLATE 5 MG TAB PO SCH (08:46)
[2022-07-15] MEDS: METOPROLOL TARTRATE 25 MG TAB PO SCH ×2 (08:46→22:02)
[2022-07-15] MEDS: PREDNISONE 20 MG TAB PO SCH ×2 (08:46→09:00)
[2022-07-15] MEDS: SODIUM BICARBONATE 650 MG TAB PO SCH ×2 (08:47→15:48)
[2022-07-15 10:42] LABS: BASOPHILS % 0.1 % (0.0-1.0); EOSINOPHILS # (AUTO) 0.4 (0.0-0.4); EOSINOPHILS % 1.6 % (0.0-6.0); HEMATOCRIT 36.4 % (38.2-49.6); LYMPHOCYTES # (AUTO) 0.5 (1.0-3.2); LYMPHOCYTES % 1.7 % (18.0-39.1); MEAN CORPUSCULAR HEMOGLOBIN 28.1 pg (28-32); MEAN CORPUSCULAR HGB CONC 30.2 g/dL (31-35); MEAN CORPUSCULAR VOLUME 93.1 fL (81-99); MONOCYTES # (AUTO) 0.6 (0.2-0.8); MONOCYTES % 2.2 % (4.4-11.3); NEUTROPHILS # (AUTO) 25.8 (2.1-6.9); NEUTROPHILS % 93.4 % (38.7-80.0); PLATELET COUNT 222 x10e3/uL (140-360); RED BLOOD COUNT 3.91 x10e6/uL (4.3-5.7); RED CELL DISTRIBUTION WIDTH 18.2 % (11.7-14.4)
[2022-07-15] MEDS: VANCOMYCIN HCL 125 MG CAPSULE PO SCH ×3 (12:40→23:21)
[2022-07-15] MEDS: ACETAMINOPHEN 325 MG TAB PO PRN (15:53)
[2022-07-15] MEDS: HEPARIN 25,000 UNIT 700 UNIT in DEXTROSE 5% 250ML 250 ML IV SCH (18:23)
[2022-07-16] VITALS: BP 133/55
[2022-07-16 04:00] VITALS: BP 133/63
[2022-07-16 06:33] LABS: BASOPHILS # (AUTO) 0.1 (0.0-0.1); BASOPHILS % 0.3 % (0.0-1.0); EOSINOPHILS # (AUTO) 0.1 (0.0-0.4); EOSINOPHILS % 0.2 % (0.0-6.0); HEMATOCRIT 35.7 % (38.2-49.6); HEMOGLOBIN 10.1 g/dL (14.0-18.0); LYMPHOCYTES # (AUTO) 0.6 (1.0-3.2); MEAN CORPUSCULAR HEMOGLOBIN 28.1 pg (28-32); MEAN CORPUSCULAR HGB CONC 28.3 g/dL (31-35); MEAN CORPUSCULAR VOLUME 99.4 fL (81-99); MONOCYTES # (AUTO) 0.6 (0.2-0.8); MONOCYTES % 2.1 % (4.4-11.3); NEUTROPHILS # (AUTO) 27.8 (2.1-6.9); NEUTROPHILS % 94.1 % (38.7-80.0); PLATELET COUNT 210 x10e3/uL (140-360); RED BLOOD COUNT 3.59 x10e6/uL (4.3-5.7); RED CELL DISTRIBUTION WIDTH 18.3 % (11.7-14.4)
[2022-07-16] MEDS: VANCOMYCIN HCL 125 MG CAPSULE PO SCH ×4 (06:50→23:22)
[2022-07-16 08:07] VITALS: BP 130/52
[2022-07-16 08:16] LABS: EOSINOPHILS % (MANUAL) 1 % (0-7); NEUTROPHILS % (MANUAL) 99 % (40-74)
[2022-07-16 08:18] LABS: PLATELET ESTIMATE ADEQUATE; PLATELET MORPHOLOGY COMMENT NORMAL; RBC MORPHOLOGY COMMENT NORMAL
[2022-07-16] MEDS: AMIODARONE HCL 200 MG TAB PO SCH ×2 (09:10→17:06)
[2022-07-16] MEDS: PREDNISONE 20 MG TAB PO SCH (09:11)
[2022-07-16] MEDS: AMLODIPINE BESYLATE 5 MG TAB PO SCH (09:11)
[2022-07-16] MEDS: METOPROLOL TARTRATE 25 MG TAB PO SCH ×2 (09:11→21:17)
[2022-07-16] MEDS: MULTIVITAMINS/MINERALS TAB PO SCH (09:11)
[2022-07-16] MEDS: SODIUM BICARBONATE 650 MG TAB PO SCH ×2 (09:12→17:06)
[2022-07-16 11:47] VITALS: BP 144/52
[2022-07-16] MEDS: HEPARIN 25,000 UNIT 700 UNIT in DEXTROSE 5% 250ML 250 ML IV SCH (12:30)
[2022-07-16 15:53] VITALS: BP 150/56
[2022-07-16 20:00] VITALS: BP 105/53
[2022-07-17] VITALS (8 sets, daily range): BP systolic 106–122; BP diastolic 50–86
[2022-07-17] MEDS: VANCOMYCIN HCL 125 MG CAPSULE PO SCH ×3 (05:13→17:06)
[2022-07-17] MEDS: ACETAMINOPHEN 325 MG TAB PO PRN ×2 (05:16→21:27)
[2022-07-17 06:19] LABS: EOSINOPHILS # (AUTO) 0.1 (0.0-0.4); EOSINOPHILS % 0.3 % (0.0-6.0); HEMATOCRIT 29.7 % (38.2-49.6); HEMOGLOBIN 9.1 g/dL (14.0-18.0); LYMPHOCYTES # (AUTO) 0.8 (1.0-3.2); LYMPHOCYTES % 2.1 % (18.0-39.1); MEAN CORPUSCULAR HEMOGLOBIN 28.6 pg (28-32); MEAN CORPUSCULAR HGB CONC 30.6 g/dL (31-35); MEAN CORPUSCULAR VOLUME 93.4 fL (81-99); MONOCYTES % 2.6 % (4.4-11.3); NEUTROPHILS # (AUTO) 35.3 (2.1-6.9); NEUTROPHILS % 92.7 % (38.7-80.0); PLATELET COUNT 197 x10e3/uL (140-360); RED BLOOD COUNT 3.18 x10e6/uL (4.3-5.7)
[2022-07-17] MEDS: METOPROLOL TARTRATE 25 MG TAB PO SCH ×2 (09:00→21:26)
[2022-07-17] MEDS: AMIODARONE HCL 200 MG TAB PO SCH ×2 (09:16→17:06)
[2022-07-17] MEDS: PREDNISONE 20 MG TAB PO SCH (09:17)
[2022-07-17] MEDS: SODIUM BICARBONATE 650 MG TAB PO SCH ×2 (09:17→17:06)
[2022-07-17] MEDS: AMLODIPINE BESYLATE 5 MG TAB PO SCH (09:17)
[2022-07-17] MEDS: MULTIVITAMINS/MINERALS TAB PO SCH (09:17)
[2022-07-17 11:05] LABS: EOSINOPHILS % (MANUAL) 1 % (0-7); LYMPHOCYTES % (MANUAL) 2 % (19-48); MONOCYTES % (MANUAL) 2 % (3.4-9.0); NEUTROPHILS % (MANUAL) 95 % (40-74)
[2022-07-17 11:07] LABS: PLATELET ESTIMATE ADEQUATE; PLATELET MORPHOLOGY COMMENT NORMAL; RBC MORPHOLOGY COMMENT NORMAL
[2022-07-17 11:08] LABS: ANISOCYTOSIS SLIGHT; POLYCHROMASIA FEW
[2022-07-18] VITALS (8 sets, daily range): BP systolic 94–119; BP diastolic 46–66
[2022-07-18] MEDS: VANCOMYCIN HCL 125 MG CAPSULE PO SCH ×5 (00:53→23:53)
[2022-07-18 06:41] LABS: BASOPHILS # (AUTO) 0.1 (0.0-0.1); BASOPHILS % 0.2 % (0.0-1.0); EOSINOPHILS # (AUTO) 0.1 (0.0-0.4); EOSINOPHILS % 0.2 % (0.0-6.0); HEMATOCRIT 25.8 % (38.2-49.6); HEMOGLOBIN 7.6 g/dL (14.0-18.0); LYMPHOCYTES # (AUTO) 0.9 (1.0-3.2); LYMPHOCYTES % 2.5 % (18.0-39.1); MEAN CORPUSCULAR HEMOGLOBIN 28.8 pg (28-32); MEAN CORPUSCULAR HGB CONC 29.5 g/dL (31-35); MEAN CORPUSCULAR VOLUME 97.7 fL (81-99); MONOCYTES # (AUTO) 0.8 (0.2-0.8); MONOCYTES % 2.2 % (4.4-11.3); NEUTROPHILS # (AUTO) 35.4 (2.1-6.9); NEUTROPHILS % 93.3 % (38.7-80.0); PLATELET COUNT 221 x10e3/uL (140-360); RED BLOOD COUNT 2.64 x10e6/uL (4.3-5.7); RED CELL DISTRIBUTION WIDTH 18.8 % (11.7-14.4)
[2022-07-18 07:18] LABS: ALBUMIN 1.7 g/dL (3.5-5.0); ALBUMIN/GLOBULIN RATIO 0.6 (0.8-2.0); ANION GAP 11.8 mmol/L (8-16); CALCIUM 7.5 mg/dL (8.4-10.2); CREATININE, SERUM 1.67 mg/dL (0.72-1.25); POTASSIUM 3.8 mmol/L (3.5-5.1)
[2022-07-18] MEDS: AMLODIPINE BESYLATE 5 MG TAB PO SCH (09:00)
[2022-07-18 09:07] LABS: LYMPHOCYTES % (MANUAL) 1 % (19-48); MONOCYTES % (MANUAL) 2 % (3.4-9.0); NEUTROPHILS % (MANUAL) 97 % (40-74)
[2022-07-18 09:08] LABS: ANISOCYTOSIS MODERATE; HYPOCHROMASIA SLIGHT; OVALOCYTES FEW; PLATELET ESTIMATE ADEQUATE; PLATELET MORPHOLOGY COMMENT NORMAL; RBC MORPHOLOGY COMMENT ABNORMAL; TOXIC GRANULATION MODERATE
[2022-07-18] MEDS: AMIODARONE HCL 200 MG TAB PO SCH ×2 (09:10→17:00)
[2022-07-18] MEDS: PREDNISONE 20 MG TAB PO SCH (09:11)
[2022-07-18] MEDS: SODIUM BICARBONATE 650 MG TAB PO SCH ×2 (09:11→18:37)
[2022-07-18] MEDS: MULTIVITAMINS/MINERALS TAB PO SCH (09:11)
[2022-07-18] MEDS: METOPROLOL TARTRATE 25 MG TAB PO SCH ×2 (09:11→21:49)
[2022-07-18 09:44] LABS: EOSINOPHILS # (AUTO) 0.3 (0.0-0.4); EOSINOPHILS % 0.7 % (0.0-6.0); HEMOGLOBIN 7.9 g/dL (14.0-18.0); LYMPHOCYTES % 2.7 % (18.0-39.1); MEAN CORPUSCULAR HGB CONC 29.3 g/dL (31-35); MEAN CORPUSCULAR VOLUME 99.3 fL (81-99); MONOCYTES # (AUTO) 0.9 (0.2-0.8); MONOCYTES % 2.5 % (4.4-11.3); NEUTROPHILS # (AUTO) 33.6 (2.1-6.9); PLATELET COUNT 215 x10e3/uL (140-360); RED BLOOD COUNT 2.72 x10e6/uL (4.3-5.7); RED CELL DISTRIBUTION WIDTH 18.9 % (11.7-14.4)
[2022-07-18] MEDS ORDERED: SODIUM CHLORIDE 0.9% 250ML 250 ML ONE (11:49)
[2022-07-18] MEDS ORDERED: HEPARIN 25,000 UNIT 600 UNIT in DEXTROSE 5% 250ML 250 ML IV SCH (12:30)
[2022-07-19] VITALS (7 sets, daily range): BP systolic 109–125; BP diastolic 46–52
[2022-07-19] MEDS: VANCOMYCIN HCL 125 MG CAPSULE PO SCH ×3 (05:11→17:23)
[2022-07-19] MEDS: ACETAMINOPHEN 325 MG TAB PO PRN (05:17)
[2022-07-19 06:31] LABS: ANION GAP 15.1 mmol/L (8-16); CREATININE, SERUM 1.62 mg/dL (0.72-1.25); POTASSIUM 4.1 mmol/L (3.5-5.1)
[2022-07-19 09:15] LABS: BASOPHILS # (AUTO) 0.1 (0.0-0.1); BASOPHILS % 0.2 % (0.0-1.0); EOSINOPHILS # (AUTO) 0.1 (0.0-0.4); EOSINOPHILS % 0.3 % (0.0-6.0); HEMATOCRIT 24.6 % (38.2-49.6); HEMOGLOBIN 7.5 g/dL (14.0-18.0); LYMPHOCYTES % 2.3 % (18.0-39.1); MEAN CORPUSCULAR HEMOGLOBIN 29.3 pg (28-32); MEAN CORPUSCULAR HGB CONC 30.5 g/dL (31-35); MONOCYTES # (AUTO) 1.2 (0.2-0.8); MONOCYTES % 2.8 % (4.4-11.3); NEUTROPHILS # (AUTO) 40.5 (2.1-6.9); NEUTROPHILS % 92.9 % (38.7-80.0); PLATELET COUNT 212 x10e3/uL (140-360); RED BLOOD COUNT 2.56 x10e6/uL (4.3-5.7); RED CELL DISTRIBUTION WIDTH 18.4 % (11.7-14.4)
[2022-07-19 09:16] LABS: MEAN CORPUSCULAR VOLUME 96.1 fL (81-99)
[2022-07-19] MEDS: SODIUM BICARBONATE 650 MG TAB PO SCH ×2 (09:44→17:24)
[2022-07-19] MEDS: MULTIVITAMINS/MINERALS TAB PO SCH (09:44)
[2022-07-19] MEDS: METOPROLOL TARTRATE 25 MG TAB PO SCH ×2 (09:45→21:37)
[2022-07-19] MEDS: PREDNISONE 20 MG TAB PO SCH (09:45)
[2022-07-19] MEDS: AMLODIPINE BESYLATE 5 MG TAB PO SCH (09:45)
[2022-07-19] MEDS: AMIODARONE HCL 200 MG TAB PO SCH ×2 (09:46→17:23)
[2022-07-19 10:38] LABS: EOSINOPHILS % (MANUAL) 2 % (0-7); LYMPHOCYTES % (MANUAL) 3 % (19-48); MONOCYTES % (MANUAL) 2 % (3.4-9.0); NEUTROPHILS % (MANUAL) 93 % (40-74)
[2022-07-19 10:39] LABS: ANISOCYTOSIS SLIGHT; PLATELET ESTIMATE ADEQUATE; PLATELET MORPHOLOGY COMMENT NORMAL; RBC MORPHOLOGY COMMENT NORMAL
[2022-07-19] MEDS ORDERED: SODIUM CHLORIDE 0.9% 250ML 250 ML IV ONE (13:45)
[2022-07-19] MEDS ORDERED: FUROSEMIDE INJ 10 MG/ML 2 ML VIAL IV PRN (13:45)
[2022-07-20] VITALS: BP 113/53
[2022-07-20] MEDS: VANCOMYCIN HCL 125 MG CAPSULE PO SCH ×3 (00:16→12:48)
[2022-07-20] MEDS: ACETAMINOPHEN 325 MG TAB PO PRN (03:05)
[2022-07-20 06:24] LABS: ANION GAP 14.1 mmol/L (8-16); CREATININE, SERUM 1.68 mg/dL (0.72-1.25); POTASSIUM 4.1 mmol/L (3.5-5.1)
[2022-07-20 08:39] VITALS: BP 103/47
[2022-07-20 09:14] LABS: BASOPHILS # (AUTO) 0.1 (0.0-0.1); BASOPHILS % 0.3 % (0.0-1.0); EOSINOPHILS # (AUTO) 0.1 (0.0-0.4); EOSINOPHILS % 0.1 % (0.0-6.0); HEMATOCRIT 31.7 % (38.2-49.6); HEMOGLOBIN 9.7 g/dL (14.0-18.0); LYMPHOCYTES # (AUTO) 0.9 (1.0-3.2); LYMPHOCYTES % 1.9 % (18.0-39.1); MEAN CORPUSCULAR HEMOGLOBIN 28.6 pg (28-32); MEAN CORPUSCULAR HGB CONC 30.6 g/dL (31-35); MEAN CORPUSCULAR VOLUME 93.5 fL (81-99); MONOCYTES # (AUTO) 1.2 (0.2-0.8); MONOCYTES % 2.5 % (4.4-11.3); NEUTROPHILS # (AUTO) 43.1 (2.1-6.9); NEUTROPHILS % 93.6 % (38.7-80.0); PLATELET COUNT 225 x10e3/uL (140-360); RED BLOOD COUNT 3.39 x10e6/uL (4.3-5.7); RED CELL DISTRIBUTION WIDTH 18.7 % (11.7-14.4)
[2022-07-20] MEDS: AMIODARONE HCL 200 MG TAB PO SCH (09:15)
[2022-07-20] MEDS: MULTIVITAMINS/MINERALS TAB PO SCH (09:17)
[2022-07-20] MEDS: SODIUM BICARBONATE 650 MG TAB PO SCH (09:17)
[2022-07-20] MEDS: METOPROLOL TARTRATE 25 MG TAB PO SCH (09:19)
[2022-07-20] MEDS: PREDNISONE 20 MG TAB PO SCH (09:20)
[2022-07-20 10:40] LABS: LYMPHOCYTES % (MANUAL) 1 % (19-48); MONOCYTES % (MANUAL) 3 % (3.4-9.0); NEUTROPHILS % (MANUAL) 96 % (40-74)
[2022-07-20 10:41] LABS: ANISOCYTOSIS SLIGHT; HYPOCHROMASIA SLIGHT; PLATELET ESTIMATE ADEQUATE; PLATELET MORPHOLOGY COMMENT NORMAL; RBC MORPHOLOGY COMMENT NORMAL
[2022-07-20 11:43] VITALS: BP 129/53
[2022-07-20] MEDS ORDERED: LOPRESSOR25 MG PO (12:11)
[2022-07-20] MEDS ORDERED: AMIODARONE HCL200 MG PO (12:11)
[2022-07-20] MEDS ORDERED: SODIUM BICARBO650 MG PO (12:11)
[2022-07-20] MEDS ORDERED: VANCOMYCIN HCL125 MG PO (12:11)
[2022-07-20] MEDS ORDERED: NORVASC5 MG PO (12:11)
[2022-07-20] MEDS ORDERED: ONDANSETRON ODT4 MG PO (12:11)
[2022-07-20] MEDS ORDERED: ASPIRIN81 MG PO (12:13)
[2022-07-20] MEDS: AMLODIPINE BESYLATE 5 MG TAB PO SCH (12:48)
[2022-07-21] MEDS ORDERED: METOPROLOL TARTRATE 25 MG TAB PO SCH (09:00)
[2022-07-21] MEDS ORDERED: AMIODARONE HCL 200 MG TAB PO SCH (09:00)
== END 2022-07-20 15:32 | disposition home health service (06) | DRG 871 ==
LOC: ER 11:47 → ERHOLD 14:34 → ICU 07-02 20:40 → MED/SURG3 07-05 12:24
PROVIDERS: ADMIT Internal Medicine; ATTEND Internal Medicine
PROC: 3E03329 Introduction of Other Anti-infective into Peripheral Vein, Percutaneous Approach (ICD-10-PCS; principal; 2022-06-30)
PROC: 0T9B70Z Drainage of Bladder with Drainage Device, Via Natural or Artificial Opening (ICD-10-PCS; 2022-07-02)
PROC: 30233N1 Transfusion of Nonautologous Red Blood Cells into Peripheral Vein, Percutaneous Approach (ICD-10-PCS; 2022-07-07)
PROC: 0BBJ3ZX Excision of Left Lower Lung Lobe, Percutaneous Approach, Diagnostic (ICD-10-PCS; 2022-07-12)
PROC: 0GB23ZX Excision of Left Adrenal Gland, Percutaneous Approach, Diagnostic (ICD-10-PCS; 2022-07-12)
PROC: 0B9J3ZX Drainage of Left Lower Lung Lobe, Percutaneous Approach, Diagnostic (ICD-10-PCS; 2022-07-12)
DX: A41.9 Sepsis, unspecified organism (principal); E43 Unspecified severe protein-calorie malnutrition; N17.9 Acute kidney failure, unspecified; N39.0 Urinary tract infection, site not specified; Z68.1 Body mass index [BMI] 19.9 or less, adult; E87.3 Alkalosis; C34.32 Malignant neoplasm of lower lobe, left bronchus or lung; C79.72 Secondary malignant neoplasm of left adrenal gland; A04.72 Enterocolitis due to Clostridium difficile, not specified as recurrent; C79.51 Secondary malignant neoplasm of bone; N18.30 Chronic kidney disease, stage 3 unspecified; R65.20 Severe sepsis without septic shock; I12.9 Hypertensive chronic kidney disease with stage 1 through stage 4 chronic kidney disease, or unspecified chronic kidney disease; I48.0 Paroxysmal atrial fibrillation; E03.9 Hypothyroidism, unspecified; E87.6 Hypokalemia; I25.10 Atherosclerotic heart disease of native coronary artery without angina pectoris; E87.5 Hyperkalemia; R62.7 Adult failure to thrive; I49.3 Ventricular premature depolarization; B96.1 Klebsiella pneumoniae [K. pneumoniae] as the cause of diseases classified elsewhere; E83.42 Hypomagnesemia; M17.11 Unilateral primary osteoarthritis, right knee; T38.0X5A Adverse effect of glucocorticoids and synthetic analogues, initial encounter; D63.8 Anemia in other chronic diseases classified elsewhere; Z91.19 Patient's noncompliance with other medical treatment and regimen; Z85.819 Personal history of malignant neoplasm of unspecified site of lip, oral cavity, and pharynx; Z85.46 Personal history of malignant neoplasm of prostate; Z88.0 Allergy status to penicillin; Z79.01 Long term (current) use of anticoagulants; Z85.89 Personal history of malignant neoplasm of other organs and systems; Z90.79 Acquired absence of other genital organ(s); Z85.51 Personal history of malignant neoplasm of bladder; Z85.850 Personal history of malignant neoplasm of thyroid; R32 Unspecified urinary incontinence; R09.02 Hypoxemia; Z20.822 Contact with and (suspected) exposure to COVID-19
CPT/HCPCS: 10009; 32408; 36415; 36600; 51700; 71045; 71046; 71250; 74176; 74470; 77012; 78580; 80048; 80053; 81001; 82550; 82553; 82607; 82728; 82746; 82805; 82948; 83540; 83605; 83735; 83880; 84443; 84466; 84484; 84550; 85025; 85379; 85610; 85730; 86850; 86900; 86920; 87040; 87071; 87075; 87086; 87116; 87186; 87205; 87206; 88304; 88305; 88333; 88342; 93005; 96361; 99152; 99153; 99251; 99284; A9540; J0360; J0696; J1644; J1650; J1817; J1940; J2001; J2250; J2916; J2920; J3010; J3475; J7030; J7050; J7070; J7512; J7799; P9016; Q0162